=== PATIENT | male | born 1995 | race Caucasian/White ===

== ENCOUNTER 2016-10-31 16:10 | Emergency (ER) | payer OTHER ==
[~2016-10-31] VITALS: Ht 180.3 cm; Wt 71.8 kg
[2016-10-31 16:25] VITALS: TEMP 97.9
[2016-10-31] MEDS ORDERED: MOTRIN 800800 MG/TAB PO (17:52)
[2016-10-31 18:15] VITALS: BP 127/83; PULSE 83
== END 2016-10-31 18:15 | disposition home or self-care (01) ==
LOC: COL.ER 16:10
DX: S93.401A Sprain of unspecified ligament of right ankle, initial encounter (principal); X50.1XXA Overexertion from prolonged static or awkward postures, initial encounter